=== PATIENT | female | born 1980 | race Caucasian/White ===

== ENCOUNTER 2019-01-05 18:21 | Emergency (ER) | payer MEDICARE ==
--- NOTE | 2019-01-05 18:38 | Emergency Department Record ---
History of Present Illness - General Chief Complaint: General Stated Complaint: PORT DRAINING/RED FLUID Time Seen by Provider: 01/05/19 18:25 Source: Patient Mode of arrival: Ambulatory Limitations: No limitations - History of Present Illness Initial Comments: 38 yo female presents to ED for increased drainage from her port site following a revision of her port performed 3 weeks ago. Patient's visiting nurse recommended coming to the ED for evaluation as the patient has been experiencing increased "blood-tinged, watery discharge" under her dressing site. Patient denies redness, fevers, chills, or purulent drainage from her operative site. Patient reports that she had a port placed for frequent vancomycin infusions due to frequent MRSA infections. MD Complaint: Wound re-check Onset/Timin -: Week(s) Initial Visit For: Other (Wound drainage) Returns Today for: Wound recheck Symptoms Since Prior Visit: Worsening discharge Associated Symptoms: None - Related Data Home Medications Medication Instructions Recorded Confirmed Last Taken Vancomycin HCl 1 gm IV BID 01/05/19 01/05/19 01/05/19 Allergies Allergy/AdvReac Type Severity Reaction Status Date / Time Sulfa (Sulfonamide Allergy HIVES Verified 01/05/19 18:26 Antibiotics) Review of Systems Constitutional: Denies: Chills, Fever, Malaise, Night sweats Eyes: Denies: Eye discharge ENT: Denies: Congestion, Dental pain, Ear pain, Epistaxis Respiratory: Denies: Cough, Dyspnea Cardiovascular: Denies: Chest pain, Dyspnea on exertion, Palpitations Endocrine: Denies: Fatigue, Heat or cold intolerance Gastrointestinal: Denies: Abdominal pain, Constipation, Diarrhea, Nausea, Vomiting Genitourinary: Denies: Incontinence, Retention Musculoskeletal: Denies: Arthralgia, Back pain Skin: Reports: Other (Drainage from post-operative wound right chest wall). Denies: Bruising, Change in color Neurological: Denies: Abnormal gait, Confusion, Headache, Numbness, Weakness Psychiatric: Denies: Anxiety Hematological/Lymphatic: Denies: Anemia, Blood Clots Past Medical History - SOCIAL HISTORY Smoking Status: Never smoker Drug Use: None - RESPIRATORY Hx Respiratory Disorders: Yes Hx Asthma: Yes Hx Sleep Apnea: Yes Hx of CPAP: Yes - CARDIOVASCULAR Hx Cardio Disorders: Yes Hx Hypertension: Yes - NEURO Hx Neuro Disorders: No - GI Hx GI Disorders: No - Hx Genitourinary Disorders: No - ENDOCRINE Hx Endocrine Disorders: No - MUSCULOSKELETAL Hx Musculoskeletal Disorders: Yes - PSYCH Hx Psych Problems: No - HEMATOLOGY/ONCOLOGY Hx Hematology/Oncology Disorders: No Physical Exam - General General Appearance: Alert, Oriented x3, Cooperative, No acute distress Limitations: No limitations - Head Head exam: Atraumatic, Normocephalic, Normal inspection Head exam detail: negative: Abrasion, Contusion, Mandujano's sign, General tenderness, Hematoma, Laceration - Eye Eye exam: Normal appearance. negative: Conjunctival injection, Periorbital swelling, Periorbital tenderness, Scleral icterus - ENT Ear exam: negative: Auricular hematoma, Auricular trauma Nasal Exam: negative: Active bleeding, Discharge, Dried blood, Foreign body Mouth exam: negative: Drooling, Laceration, Muffled voice, Tongue elevation - Neck Neck exam: Normal inspection. negative: Meningismus, Tenderness - Respiratory Respiratory exam: Normal lung sounds bilaterally, Other (Op-site to the right chest wall overlying patient's port site). negative: Respiratory distress, Rhonchi, Stridor, Wheezes - Cardiovascular Cardiovascular Exam: Regular rate, Normal rhythm, Normal heart sounds - GI/Abdominal GI/Abdominal exam: Soft. negative: Distended, Rebound, Rigid, Tenderness - Rectal Rectal exam: Deferred - exam: Deferred - Extremities Extremities exam: Normal inspection. negative: Pedal edema, Tenderness - Back Back exam: Denies: CVA tenderness (R), CVA tenderness (L) - Neurological Neurological exam: Alert, Normal gait, Oriented X3 - Psychiatric Psychiatric exam: Normal affect, Normal mood - Skin Skin exam: Normal color. negative: Abrasion Type of lesion: negative: abrasion Course - Reevaluation(s) Reevaluation #1: 01/05/19 18:42 Patient's op-site was removed, small amount of sero-sanguinous drainage is present on examination. No evidence for infection is present on examination. New dressing with a folded 4x4 was replaced, new op-site dressing was applied. Case was discussed with Dr. Mcgovern (patient's surgeon), and is in agreement with Q12 hour dressing changes and follow-up in 1-3 days as directed. Patient is in agreement with the plan of care as discussed, and appears stable for discharge at this time. Disposition Disposition: Discharge Clinical Impression: Draining postoperative wound Qualifiers: Encounter type: initial encounter Qualified Code(s): T81.89XA - Other complications of procedures, not elsewhere classified, initial encounter Disposition: Home, Self-Care Condition: (2) Stable Instructions: Acute Wound Care (ED) Additional Instructions: Return to ED if your symptoms worsen or if you have any concerns. Dressing changes Q12 hours as needed. Follow-up with Dr. Mcgovern in 1-3 days for further evaluation. Referrals: YOANNA MCGOVERN [[email or web address]] - Forms: Patient Portal Access Time of Disposition: 18:38 Quality - Quality Measures Quality Measures: N/A - Blood Pressure Screening Does Patient Have Any of the Following: Active Dx of HTN Blood Pressure Classification: Hypertensive Reading Systolic Measurement: 201 Diastolic Measurement: 146 Screening for High Blood Pressure: Patient Exclusion, Hx of HTN [[id number]]
== END 2019-01-05 18:48 | disposition home or self-care (01) ==
LOC: ER 18:21
DX: L76.34 Postprocedural seroma of skin and subcutaneous tissue following other procedure (principal); Y83.8 Other surgical procedures as the cause of abnormal reaction of the patient, or of later complication, without mention of misadventure at the time of the procedure; I10 Essential (primary) hypertension
CPT/HCPCS: 99283